=== PATIENT | male | born 1950 | race African-American/Black ===

== ENCOUNTER 2025-06-01 12:31 | Observation (INO) | payer OTHER, MEDICAID ==
[2025-06-01 14:41] VITALS: BMI 29.8
[2025-06-01] MEDS ORDERED: Acetaminophen 325 MG TAB PO PRN (14:45)
[2025-06-01] MEDS ORDERED: Ondansetron PF 4 MG/2 ML Vial IVP PRN (14:45)
[2025-06-01] MEDS ORDERED: Nitroglycerin 0.4 MG TAB (25 Tab Bottle) SL PRN (14:46)
[2025-06-01] MEDS ORDERED: Dextrose 50% Abboject 50 ML SYRINGE SLOW IVP PRN (15:13)
[2025-06-01] MEDS ORDERED: Glucagon 1 MG/ML KIT IM PRN (15:13)
[2025-06-01] MEDS: Aspirin 325 MG TAB PO SCH (17:48)
[2025-06-02 05:11] LABS: ALT (SGPT) 15 U/L (Less than 45); AST (SGOT) 19 U/L (11-34); Albumin 3.7 g/dL (3.1-4.5); Alkaline Phosphatase 66 U/L (40-110); Anion Gap 13 mmol/L (10-20); BUN (Urea Nitrogen) 29 mg/dL (8.4-25.7); Bilirubin, Total 1.0 mg/dL (0.3-1.2); Calc. Creatinine Clearance 57 mL/min (70-130); Calcium 9.2 mg/dL (7.8-10.44); Carbon Dioxide 24 mmol/L (23-31); Cardiac Risk 3.4 (Less than 4.5); Chloride 106 mmol/L (98-107); Cholesterol 105 mg/dl (< 200 Desired); Globulin 3.2 g/dL (2.4-3.5); Glucose 98 mg/dL (83-110); HDL Cholesterol 31 mg/dL (>60 Neg Risk); LDL Cholesterol, Calculated 60 mg/dL; Potassium 4.2 mmol/L (3.5-5.1); Sodium 139 mmol/L (136-145); Triglycerides 71 mg/dL (Less than 150)
[2025-06-02 08:27] VITALS: TEMP 98.2
[2025-06-02] MEDS: Lisinopril 20 MG TAB PO SCH (08:28)
[2025-06-02] MEDS: Enoxaparin 40 MG (0.4 mL) SYRINGE SC SCH (08:29)
[2025-06-02] MEDS: Aspirin Chewable 81 MG TAB PO SCH (08:29)
[2025-06-02 11:35] VITALS: BP 136/65
== END 2025-06-02 18:10 | disposition home or self-care (01) ==
LOC: OBS 14:21
PROVIDERS: ADMIT Family Medicine; ATTEND Hospitalist
PROC: B245ZZ4 Ultrasonography of Left Heart, Transesophageal (ICD-10-PCS; principal; 2025-06-01)
DX: I44.1 Atrioventricular block, second degree (principal); E11.9 Type 2 diabetes mellitus without complications; I10 Essential (primary) hypertension; Z79.82 Long term (current) use of aspirin; Z79.84 Long term (current) use of oral hypoglycemic drugs; Z79.899 Other long term (current) drug therapy
CPT/HCPCS: 36415; 36416; 80053; 80061; 93306; J1650